=== PATIENT | male | born 1975 | race American Indian/Alaskan Native ===

== ENCOUNTER 2017-09-29 00:58 | Emergency (ER) | payer SELFPAY ==
[2017-09-29] MEDS ORDERED: NACL 0.9% 1000 ML 1,000 ML IV ONE ×2 (01:06→01:07)
[2017-09-29 01:45] LABS: Basophils # (Auto) 0.1 K/mm3 (0.0-0.1); Basophils % (Auto) 0.8 % (0.0-1.8); Eosinophils % (Auto) 0.2 % (0.0-4.3); Hematocrit 46.6 % (35.5-45.6); Hemoglobin 15.4 gm/dl (11.8-15.2); Lymphocytes % (Auto) 12.4 % (13.4-35.0); Mean Corpuscular HGB Conc 33 % (32-34); Mean Corpuscular Hemoglobin 31 pg (28-32); Mean Corpuscular Volume 92 fl (84-94); Monocytes # (Auto) 0.8 K/mm3 (0.0-0.8); Platelet Count 170 K/mm3 (140-440); Red Blood Count 5.06 M/mm3 (3.65-5.03)
[2017-09-29 02:04] LABS: Alanine Aminotransferase 58 units/L (7-56); Albumin 4.5 g/dL (3.9-5); BUN/Creatinine Ratio 12; Blood Urea Nitrogen 6 mg/dL (9-20); Calcium 9.7 mg/dL (8.4-10.2); Hemolysis Index 0; Lipase 29 units/L (13-60)
[2017-09-29 02:35] LABS: INR 0.88 (0.87-1.13)
[2017-09-29 02:36] LABS: Partial Thromboplastin Time 29.6 Sec. (24.2-36.6)
[2017-09-29 03:05] LABS: Bilirubin,Urine NEG (Negative); Blood,Urine MOD (Negative); Color,Urine Yellow (Yellow); Mucus,Urine FEW /HPF; Urobilinogen,Urine < 2.0 mg/dL (<2.0)
[2017-09-29] MEDS ORDERED: DILAUDID IV ONE (04:18)
[2017-09-29] MEDS ORDERED: ZOFRAN ODT PO ONE (04:18)
--- NOTE | 2017-09-29 05:06 | Cat Scan Report ---
FINAL REPORT EXAM: CT ABDOMEN PELVIS WO CON HISTORY: sudden onset left flank pain TECHNIQUE: CT images obtained through the Abdomen and Pelvis without contrast. Transaxial,coronal and sagittal reformats are provided. PRIORS: 05/08/2014 FINDINGS: Imaged intrathoracic contents are unremarkable. Kidneys are normal in size, axis and position. No hydroureteronephrosis. There are several 1-2 millimeter nonobstructive stones in both collecting systems. No stones are seen within the urinary bladder. Pelvic phleboliths are noted. Diffuse hepatic parenchymal hypoattenuation with sparing about the gallbladder. The liver, gallbladder, pancreas, spleen, and adrenal glands otherwise demonstrate an unremarkable noncontrast appearance. Hollow enteric organs are normal in course and caliber. There is a short segment of left lower quadrant sigmoid colonic wall thickening with adjacent edema and stranding centered on several diverticula. Appendix is normal. No pneumoperitoneum or focal fluid collection to suggest abscess formation. Aorta is normal in course and caliber. Superficial soft tissues are unremarkable. No acute or aggressive appearing skeletal findings. IMPRESSION: Acute sigmoid diverticulitis. Colonoscopy follow-up is suggested when clinically appropriate. Hepatic steatosis. Nonobstructive nephrolithiasis measures up to 1-2 millimeters in both collecting systems.
[2017-09-29 05:09] VITALS: BP 135/79
[2017-09-29] MEDS ORDERED: PERCOCET 5/325 PO ONE (05:29)
[2017-09-29] MEDS ORDERED: FLAGYL PO ONE (05:30)
--- NOTE | 2017-09-29 06:37 | Emergency Department Report ---
ED Abdominal Pain HPI - General Chief Complaint: Abdominal Pain Stated Complaint: HEADACHE , BACK PAIN Time Seen by Provider: 09/29/17 03:00 Source: patient Mode of arrival: Ambulatory Limitations: No Limitations - History of Present Illness Initial Comments: 1 day of left-sided abdominal pain that is constant, nonradiating, made worse with eating since drinking. It is crampy in nature. Similar to pain 5 months ago that spontaneously resolved. No history of abdominal surgeries. No dysuria. Last bowel movement was today. Afebrile. Severity scale (0 -10): 7 - Related Data Previous Rx's Medication Instructions Recorded Last Taken Type Ciprofloxacin HCl [Cipro] 500 mg PO BID #14 tablet 09/29/17 Unknown Rx HYDROcodone/ACETAMINOPHEN 1 each PO TID PRN #12 tablet 09/29/17 Unknown Rx [Hydrocodon-Acetaminophen 5-325] Ondansetron [Zofran Odt] 4 mg PO TID PRN #10 tab.rapdis 09/29/17 Unknown Rx metroNIDAZOLE [Flagyl] 500 mg PO Q8HR #21 tablet 09/29/17 Unknown Rx Allergies Allergy/AdvReac Type Severity Reaction Status Date / Time No Known Allergies Allergy Unverified 05/07/14 14:12 ED Review of Systems ROS: Stated complaint: HEADACHE , BACK PAIN Other details as noted in HPI Comment: All other systems reviewed and negative Gastrointestinal: abdominal pain, nausea, vomiting ED Past Medical Hx - Past Medical History Hx Hypertension: Yes (untreated) Hx Congestive Heart Failure: No Hx Diabetes: No Hx Asthma: No Hx COPD: No Hx HIV: No Additional medical history: rectal bleed - Social History Smoking Status: Current Every Day Smoker - Medications Home Medications: Home Medications Medication Instructions Recorded Confirmed Last Taken Type Ciprofloxacin HCl [Cipro] 500 mg PO BID #14 tablet 09/29/17 Unknown Rx HYDROcodone/ACETAMINOPHEN 1 each PO TID PRN #12 tablet 09/29/17 Unknown Rx [Hydrocodon-Acetaminophen 5-325] Ondansetron [Zofran Odt] 4 mg PO TID PRN #10 tab.rapdis 09/29/17 Unknown Rx metroNIDAZOLE [Flagyl] 500 mg PO Q8HR #21 tablet 09/29/17 Unknown Rx ED Physical Exam - General Limitations: No Limitations General appearance: alert, in distress (mild) - Head Head exam: Present: atraumatic, normocephalic - Eye Eye exam: Present: normal appearance - ENT ENT exam: Present: mucous membranes moist - Neck Neck exam: Present: normal inspection - Respiratory Respiratory exam: Present: normal lung sounds bilaterally. Absent: respiratory distress - Cardiovascular Cardiovascular Exam: Present: regular rate, normal rhythm. Absent: systolic murmur, diastolic murmur, rubs, gallop - GI/Abdominal GI/Abdominal exam: Present: soft, tenderness (left flank), normal bowel sounds. Absent: guarding, rebound, rigid - Rectal Rectal exam: Present: deferred - Extremities Exam Extremities exam: Present: normal inspection - Back Exam Back exam: Present: normal inspection - Neurological Exam Neurological exam: Present: alert, oriented X3 - Psychiatric Psychiatric exam: Present: normal affect, normal mood - Skin Skin exam: Present: warm, dry, intact, normal color. Absent: rash ED Course Vital Signs 09/29/17 09/29/17 09/29/17 00:55 01:04 02:42 Temperature 98.8 F 98.8 F 99.4 F Pulse Rate 93 H 89 82 Respiratory 20 18 16 Rate Blood Pressure 183/108 183/108 Blood Pressure [Left] Blood Pressure 153/97 [Right] O2 Sat by Pulse 99 99 99 Oximetry 09/29/17 09/29/17 03:14 05:08 Temperature 98.7 F Pulse Rate 75 Respiratory 16 15 Rate Blood Pressure Blood Pressure 135/79 [Left] Blood Pressure [Right] O2 Sat by Pulse 98 99 Oximetry ED Medical Decision Making - Lab Data Result diagrams: 09/29/17 01:13 09/29/17 01:13 - Radiology Data Radiology results: report reviewed, image reviewed - Medical Decision Making 42-year-old male with past medical history of alcohol abuse that presents to the ER with left flank pain. Lab work is significant for bicarbonate of 19. Likely is secondary to dehydration. Patient is given IV fluids in the ER. LFTs were unremarkable. Urinalysis showed moderate hematuria. I ordered a CT abdomen and pelvis which showed signs of diverticulitis that is uncomplicated. Patient will be started on Cipro/Flagyl. I warned him about taking these antibiotics while drinking. He said that he will cut back while he is on antibiotics. He never has had withdrawal seizures, but does have shakes in the morning when he wakes up. Patient's pain was controlled in the ER with oral narcotics. He feels comfortable going home and following up with his family doctor. Cleared for discharge. I also informed him of the risk of tendon rupture while on cipro. - Differential Diagnosis pyelonephritis, kidney stone, pneumonia, diverticulitis, constipation Critical care attestation.: If time is entered above; I have spent that time in minutes in the direct care of this critically ill patient, excluding procedure time. ED Disposition Clinical Impression: Diverticulitis Disposition: TO HOME OR SELFCARE Is pt being admited?: No Does the pt Need Aspirin: No Condition: Stable Instructions: Diverticulitis (ED), Diverticulitis Diet (ED) Additional Instructions: Do you best to not drink while on the antibiotics because you will become violently sick. If you start going into alcohol withdrawal, return to the ER for re-evaluation. While on ciprofloxacin, you are at increased risk for tendon rupture. Do not exert yourself while on then antibiotics. Prescriptions: Ciprofloxacin HCl [Cipro] 500 mg PO BID #14 tablet HYDROcodone/ACETAMINOPHEN [Hydrocodon-Acetaminophen 5-325] 1 each PO TID PRN # 12 tablet PRN Reason: Pain, Moderate (4-6) metroNIDAZOLE [Flagyl] 500 mg PO Q8HR #21 tablet Ondansetron [Zofran Odt] 4 mg PO TID PRN #10 tab.rapdis PRN Reason: Nausea Referrals: [facility] [Outside] - 3-5 Days
== END 2017-09-29 07:17 | disposition home or self-care (01) ==
LOC: ED 00:58
DX: K57.92 Diverticulitis of intestine, part unspecified, without perforation or abscess without bleeding (principal); I10 Essential (primary) hypertension; F17.200 Nicotine dependence, unspecified, uncomplicated
CPT/HCPCS: 36415; 74176; 80053; 81001; 83690; 85025; 85610; 85730; 86850; 86900; 86901; 96374; 99284; J1170; J7030; 96361; Q0162

== ENCOUNTER 2018-03-15 23:59 | Emergency (ER) | payer SELFPAY ==
[2018-03-16] MEDS ORDERED: TORADOL IV STA (02:58)
[2018-03-16] MEDS ORDERED: LEVSIN SL SL ONE (02:58)
[2018-03-16] MEDS ORDERED: ZOFRAN IV STA (03:02)
--- NOTE | 2018-03-16 03:31 | XRay Report ---
FINAL REPORT PROCEDURE: XR ABD SERIES W CXR 1V TECHNIQUE: Abdominal series complete, including supine and upright AP views of the abdomen and front al chest. HISTORY: constipation abd pain COMPARISON: No prior studies are available for comparison. FINDINGS: Heart: Normal. Mediastinum/Vessels: Normal. Lungs/Pleural space: Normal. Bowel gas pattern: Nonobstructive. Masses or calcifications: None. Bony structures: No acute osseous abnormality. Other: No free intraperitoneal air. IMPRESSION: No acute abnormality.
[2018-03-16 03:41] LABS: Eosinophils % (Auto) 0.1 % (0.0-4.3); Hemoglobin 15.1 gm/dl (11.8-15.2); Lymphocytes # (Auto) 0.4 K/mm3 (1.2-5.4); Lymphocytes % (Auto) 9.5 % (13.4-35.0); Mean Corpuscular HGB Conc 35 % (32-34); Mean Corpuscular Hemoglobin 32 pg (28-32); Mean Corpuscular Volume 91 fl (84-94); Monocytes # (Auto) 0.5 K/mm3 (0.0-0.8); Monocytes % (Auto) 12.2 % (0.0-7.3); Platelet Count 170 K/mm3 (140-440); Red Blood Count 4.73 M/mm3 (3.65-5.03)
[2018-03-16 03:50] LABS: Alanine Aminotransferase 40 units/L (7-56); Albumin 4.3 g/dL (3.9-5); BUN/Creatinine Ratio 12; Blood Urea Nitrogen 6 mg/dL (9-20); Calcium 9.5 mg/dL (8.4-10.2); Hemolysis Index 7; Lipase 23 units/L (13-60)
--- NOTE | 2018-03-16 04:20 | Emergency Department Report ---
ED Abdominal Pain HPI - General Chief Complaint: Back Pain/Injury Stated Complaint: BACK AND SIDE PAIN Time Seen by Provider: 03/16/18 02:23 Source: patient Mode of arrival: Ambulatory Limitations: No Limitations - History of Present Illness Initial Comments: 23-year-old male past medical history of diverticulitis. ReturnS to emergency department for reevaluation of his abdomen, which she states has been hurting him for the last 2 or 3 days. Initially seen 02/28/2018. He is assessed to have diverticulitis on the CT scan at that point in time had some issues with some hyponatremia and hyperkalemia with hypochloremia.. He was disc harged with Levaquin and Flagyl, but at the 2 days. Take medications spontaneously discontinued without consulting his primary care provider due to nausea. States his symptoms did resolve. He returned to normal until the last few days. Currently has pains and aches to the left side of the abdomen which radiates over to the right but no diarrhea. This is associated. No fever. No chest pain, palpitations, coryza. MD Complaint: abdominal pain Location: LUQ, LLQ, L flank Migration to: R flank Severity scale (0 -10): 4 Quality: cramping, aching Consistency: constant Improves With: nothing Worsens With: nothing Associated Symptoms: denies: vomiting, diarrhea, constipation, dysuria, hematemesis, hematuria, anorexia, syncope - Related Data Previous Rx's Medication Instructions Recorded Last Taken Type HYDROcodone/APAP 5-325 [[place] 1 each PO Q6HR PRN #12 tablet 03/01/18 Unknown Rx 5/325] levoFLOXacin [Levaquin TAB] 500 mg PO QDAY 7 Days tablet 03/01/18 Unknown Rx metroNIDAZOLE [Flagyl TAB] 500 mg PO Q8HR 7 Days tablet 03/01/18 Unknown Rx Allergies Allergy/AdvReac Type Severity Reaction Status Date / Time No Known Allergies Allergy Unverified 05/07/14 14:12 ED Review of Systems ROS: Stated complaint: BACK AND SIDE PAIN Other details as noted in HPI Constitutional: denies: chills, fever Eyes: denies: eye pain, eye discharge, vision change ENT: denies: ear pain, throat pain Respiratory: denies: cough, shortness of breath, wheezing Cardiovascular: denies: chest pain, palpitations Endocrine: no symptoms reported Gastrointestinal: denies: abdominal pain, nausea, diarrhea Genitourinary: denies: urgency, dysuria Musculoskeletal: denies: back pain, joint swelling, arthralgia Skin: denies: rash, lesions Neurological: denies: headache, weakness, paresthesias Psychiatric: denies: anxiety, depression Hematological/Lymphatic: denies: easy bleeding, easy bruising ED Past Medical Hx - Past Medical History Previous Medical History?: Yes Hx Hypertension: Yes (untreated) Hx Congestive Heart Failure: No Hx Diabetes: No Hx Asthma: No Hx COPD: No Hx HIV: No Additional medical history: rectal bleed - Surgical History Past Surgical History?: No - Social History Smoking Status: Current Every Day Smoker Substance Use Type: Alcohol, Marijuana - Medications Home Medications: Home Medications Medication Instructions Recorded Confirmed Last Taken Type HYDROcodone/APAP 5-325 [[place] 1 each PO Q6HR PRN #12 tablet 03/01/18 Unknown Rx 5/325] levoFLOXacin [Levaquin TAB] 500 mg PO QDAY 7 Days tablet 03/01/18 Unknown Rx metroNIDAZOLE [Flagyl TAB] 500 mg PO Q8HR 7 Days tablet 03/01/18 Unknown Rx ED Physical Exam - General Limitations: No Limitations General appearance: alert, in no apparent distress - Head Head exam: Present: atraumatic, normocephalic - Eye Eye exam: Present: normal appearance, PERRL, EOMI - ENT ENT exam: Present: normal exam, mucous membranes moist - Neck Neck exam: Present: normal inspection, full ROM - Respiratory Respiratory exam: Present: normal lung sounds bilaterally. Absent: respiratory distress - Cardiovascular Cardiovascular Exam: Present: regular rate, normal rhythm. Absent: systolic murmur, diastolic murmur, rubs, gallop - GI/Abdominal GI/Abdominal exam: Present: soft, tenderness, normal bowel sounds. Absent: hyperactive bowel sounds, hypoactive bowel sounds, organomegaly, mass, bruit - Rectal Rectal exam: Present: deferred - Extremities Exam Extremities exam: Present: normal inspection, normal capillary refill - Back Exam Back exam: Present: normal inspection, full ROM. Absent: CVA tenderness (R), CVA tenderness (L) - Neurological Exam Neurological exam: Present: alert, oriented X3, CN II-XII intact - Psychiatric Psychiatric exam: Present: normal affect, normal mood. Absent: anxious, flat affect, manic, suicidal ideation - Skin Skin exam: Present: warm, dry, intact, normal color. Absent: rash ED Course Vital Signs 03/16/18 03/16/18 01:05 01:33 Temperature 99.4 F 98.1 F Pulse Rate 93 H Respiratory 18 Rate Blood Pressure 155/91 O2 Sat by Pulse 98 Oximetry ED Medical Decision Making - Lab Data Result diagrams: 03/16/18 03:25 03/16/18 03:25 Critical care attestation.: If time is entered above; I have spent that time in minutes in the direct care of this critically ill patient, excluding procedure time. ED Disposition Clinical Impression: Abdominal pain, Hyponatremia, Medication nonadherence due to intolerance, Nausea Disposition: DC-01 TO HOME OR SELFCARE Is pt being admited?: No Does the pt Need Aspirin: No Condition: Stable
[2018-03-16] MEDS ORDERED: NORCO 5/325 PO ONE (05:04)
[2018-03-16 05:23] VITALS: BP 131/84
== END 2018-03-16 05:20 | disposition home or self-care (01) ==
LOC: ED 23:59
DX: E87.1 Hypo-osmolality and hyponatremia (principal); R10.9 Unspecified abdominal pain; R11.0 Nausea; I10 Essential (primary) hypertension; F17.200 Nicotine dependence, unspecified, uncomplicated; F12.10 Cannabis abuse, uncomplicated
CPT/HCPCS: 36415; 74022; 80053; 83690; 85025; 96374; 96375; 99284; J1885; J2405